=== PATIENT | male | born 1940 | race Caucasian/White ===

== ENCOUNTER 2016-11-20 11:06 | Emergency (ER) | payer MEDICARE, BC ==
[~2016-11-20] VITALS: Ht 170.2 cm; Wt 118.2 kg
[~2016-11-20 11:06] MED LIST: ALLEGRA 180MG180 MG PO; ASPIRIN E.C. 8181 MG PO; CALCIUM600 M2 PO; CALTRATE 600 +1 TAB PO; CARDI-OMEGA1000 MG PO; CENTRUM SILVER1 TA1 PO; CINNAMON500 MG PO; COZAAR100 MG PO; FLAX SEED OIL1000 MG PO; FLAXSEED OIL1300 MG PO; FOLIC ACID 40400 MCG PO; FORTAMET1000 MG PO; FOSINOPRIL40 MG PO; GARLIC1000 MG PO; GLUCOTROL10 MG PO; HCTZ 25MG25 MG PO; INDOCIN50 MG PO; INSLANT SQ; IRON50 MG PO; IRON65 M1 PO; KLOR-CON M2020 MEQ PO; LASIX 20MG TABL20 MG PO; LASIX 40MG TABL40 MG PO; LIPITOR20 MG PO; LOPID 600M600 MG/TAB PO; MELOXICAM15 MG PO; MICRONASE5 MG PO; NAPROSYN 2250 MG/TAB PO; NEURONTIN600 MG/TAB; NORCO 325 MG-51 TAB PO; NORCO 325 MG-7.1 TAB PO; NORVASC2.5 MG PO; REFRESH EYE ITCH5 ML OP; SUPER EPA 1201200 MG PO; TOPROL XL 50MG50 MG PO; ULTRAM 50MG TAB50 MG PO; VITAMIN C PO; VITAMIN C PUR1000 MG PO; VITAMIN C500 MG PO; ZOCOR 40MG40 MG PO
[2016-11-20 11:07] VITALS: TEMP 99
[2016-11-20] MEDS ORDERED: LASIX 40MG TABL40 MG PO (11:18)
[2016-11-20] MEDS ORDERED: NEURONTIN300 MG/CAP PO (11:20)
[2016-11-20 11:52] LABS: BASO # 0.1 (0.0-0.2); BASO % 0.5 % (0.0-2.0); EOS # 0.1 (0.0-0.7); EOS % 1.3 % (0-4.0); GRAN # 7.3 (1.4-6.5); GRAN % 74.2 % (42.2-75.2); LYMPH # 1.6 (1.2-3.4); LYMPH % 15.8 % (20.0-51.0); MEAN CELL VOLUME 94 fl (80.0-100.0); MEAN CORPUSCULAR HGB CONC 32 g/dl (33.0-37.0); MONO # 0.8 (0.1-0.6); MONO % 7.8 % (1.7-9.3); PLATELET COUNT 231 K/mm3 (130-400); RED BLOOD COUNT 3.64 M/mm3 (4.20-5.60); REDCELL DISTRIBUTION WIDTH-CV 14.2 % (11.5-14.5); WHITE BLOOD COUNT 9.8 K/mm3 (4.8-10.8)
[2016-11-20 11:55] LABS: HEMATOCRIT 34.1 % (42.0-52.0); HEMOGLOBIN 10.9 g/dl (13.5-18.0); MEAN CORPUSCULAR HEMOGLOBIN 30 pg (27.0-31.0)
[2016-11-20 11:57] LABS: INR 1.1 (0.8-3.0); PROTHROMBIN TIME 12.3 SECONDS (9.7-12.8)
[2016-11-20 12:03] LABS: ADJUSTED CALCIUM 9.4 mg/dL (8.4-10.2); ALBUMIN 4.1 gm/dL (3.5-5.0); BILIRUBIN,TOTAL 0.7 mg/dL (0.0-1.0); CALCIUM 9.5 mg/dL (8.4-10.2); CREATININE, serum 1.33 mg/dL (0.66-1.25); TOTAL PROTEIN 7.7 gm/dL (6.4-8.2)
[2016-11-20 12:15] LABS: TROPONIN-I 0.015 ng/mL (0.000-0.034)
[2016-11-20 12:20] LABS: PROLACTIN 4.5 ng/mL (3.7-17.9)
[2016-11-20 13:22] LABS: ARTERIAL BLD GAS O2 SATURATION 96.1 % (92-100); ARTERIAL BLD GAS TCO2 CT 25.5; ARTERIAL BLOOD GAS BASE EXCESS -0.2 (-2-2); ARTERIAL BLOOD GAS HCO3 24.3 meq/L (22-26); ARTERIAL BLOOD GAS PHT 7.41 C (7.35-7.45); ARTERIAL BLOOD GAS PO2 87.1 mmHg (80-100); ARTERIAL BLOOD GAS PO2T 87.1 (80-100); ARTERIAL BLOOD GAS pH 7.41 (7.35-7.45); OXYHEMOGLOBIN 95.3 %
[2016-11-20 13:23] LABS: ATS? YES
[2016-11-20 14:13] LABS: PH 5 (5-8); SQUAMOUS EPITHELIAL 0-2 /hpf; URINE APPEARANCE Clear; URINE BACTERIA None Seen /hpf; URINE BILIRUBIN Negative (NEGATIVE); URINE BLOOD Negative (NEGATIVE); URINE COLOR Yellow; URINE GLUCOSE Negative (NEGATIVE); URINE KETONE Negative (NEGATIVE); URINE RBC 0-2 /hpf; URINE UROBILINOGEN Negative (NEGATIVE); URINE WBC 0-2 /hpf
[2016-11-20 17:37] VITALS: BP 153/67; PULSE 93
== END 2016-11-20 19:08 | disposition home or self-care (01) ==
LOC: COL.ER 11:06
PROVIDERS: Emergency Medicine
DX: R53.1 Weakness (principal); I49.3 Ventricular premature depolarization; I11.0 Hypertensive heart disease with heart failure; I50.9 Heart failure, unspecified; E11.9 Type 2 diabetes mellitus without complications; J44.9 Chronic obstructive pulmonary disease, unspecified; F17.210 Nicotine dependence, cigarettes, uncomplicated; Z79.4 Long term (current) use of insulin
CPT/HCPCS: J7040

== ENCOUNTER → 2018-03-31 | Outpatient (CLI) | payer MEDICARE, BC ==
[~2018-03-31] MED LIST changes: +DEMADEX 20MG20 M1 PO; +DESENEX TP; +EPA FISH OIL1 SGL PO; +FLOMAX 0.40.4 MG/CAP PO; +HCTZ 25MG TAB25 MG PO; +LANTUS100 U/ML SQ; +NEURONTIN300 MG/CAP PO
[2018-03-31 09:38] LABS: BASO # 0.1 (0.0-0.2); BASO % 0.7 % (0.0-2.0); EOS # 0.3 (0.0-0.7); EOS % 4.5 % (0-4.0); GRAN # 5.1 (1.4-6.5); GRAN % 67.5 % (42.2-75.2); HEMATOCRIT 32.9 % (42.0-52.0); HEMOGLOBIN 10.9 g/dl (13.5-18.0); LYMPH # 1.5 (1.2-3.4); LYMPH % 19.4 % (20.0-51.0); MEAN CELL VOLUME 95 fl (80.0-100.0); MEAN CORPUSCULAR HEMOGLOBIN 31 pg (27.0-31.0); MEAN CORPUSCULAR HGB CONC 33 g/dl (33.0-37.0); MEAN PLATELET VOLUME 8.6 fl (7.4-10.4); MONO # 0.6 (0.1-0.6); MONO % 7.5 % (1.7-9.3); PLATELET COUNT 232 K/mm3 (130-400); RED BLOOD COUNT 3.47 M/mm3 (4.20-5.60); REDCELL DISTRIBUTION WIDTH-CV 14.5 % (11.5-14.5)
[2018-03-31 09:51] LABS: CALCIUM 9.8 mg/dL (8.4-10.2); CREATININE, serum 1.54 mg/dL (0.66-1.25); POTASSIUM 4.2 mmol/L (3.4-5.0)
== END ==
LOC: COL.LAB 09:05
PROVIDERS: Urology
DX: Z01.818 Encounter for other preprocedural examination (principal); N40.1 Benign prostatic hyperplasia with lower urinary tract symptoms; R39.12 Poor urinary stream

== ENCOUNTER 2018-04-06 11:30 | Day surgery (SDC) | payer MEDICARE, BC ==
[~2018-04-06] VITALS: Ht 170.2 cm; Wt 116.3 kg
[2018-04-06] VITALS (9 sets, daily range): BP systolic 90–164; BP diastolic 37–78; PULSE 56–89; TEMP 97.4–99.2
[~2018-04-06 11:30] MED LIST changes: +CALCIUM CARBON650 M2 PO; -CALCIUM600 M2 PO; +CENTRUM SILVER1 CTB PO; -CENTRUM SILVER1 TA1 PO; +FLAX OIL1000 MG PO; -FLAXSEED OIL1300 MG PO; -FORTAMET1000 MG PO; +GLUCOPHAGE1000 MG PO; -IRON65 M1 PO; +NATURAL IRON65 MG PO
[2018-04-06] MEDS ORDERED: MASON NATURAL1200 MG PO (12:40)
[2018-04-06] MEDS ORDERED: DESENEX21 TOP (14:57)
[2018-04-07 04:07] VITALS: BP 129/53; PULSE 67; TEMP 97.8
[2018-04-07 09:15] VITALS: BP 156/60; PULSE 76; TEMP 98.3
[2018-04-07 12:55] VITALS: BP 143/49; PULSE 77; TEMP 97.1
== END 2018-04-07 13:54 | disposition home or self-care (01) ==
LOC: SDCO 11:30 → SURG 16:49 → SDCO 04-07 13:54
DX: N40.1 Benign prostatic hyperplasia with lower urinary tract symptoms (principal); N32.0 Bladder-neck obstruction; R39.12 Poor urinary stream; N39.43 Post-void dribbling; R39.15 Urgency of urination; R35.0 Frequency of micturition; I11.0 Hypertensive heart disease with heart failure; I50.9 Heart failure, unspecified; E78.5 Hyperlipidemia, unspecified; E11.9 Type 2 diabetes mellitus without complications; Z79.4 Long term (current) use of insulin; Z79.82 Long term (current) use of aspirin; Z79.899 Other long term (current) drug therapy; F17.220 Nicotine dependence, chewing tobacco, uncomplicated; Z83.3 Family history of diabetes mellitus; Z82.49 Family history of ischemic heart disease and other diseases of the circulatory system
CPT/HCPCS: OP; J0690; J1815; J2250; J2405; J3010; J3480; J7030

== ENCOUNTER 2018-05-14 20:57 | Emergency (ER) | payer MEDICARE, BC ==
[~2018-05-14] VITALS: Ht 170.2 cm; Wt 113.6 kg
[~2018-05-14 20:57] MED LIST changes: +DESENEX21 TOP; +MASON NATURAL1200 MG PO
[2018-05-14 20:59] VITALS: BP 180/94; TEMP 97.6
[2018-05-14] MEDS ORDERED: MOBIC15 MG PO (21:37)
[2018-05-14 21:40] LABS: BASO % 0.4 % (0.0-2.0); EOS # 0.5 (0.0-0.7); GRAN # 6.2 (1.4-6.5); GRAN % 66.1 % (42.2-75.2); HEMOGLOBIN 11.8 g/dl (13.5-18.0); LYMPH # 2.1 (1.2-3.4); MEAN CELL VOLUME 94 fl (80.0-100.0); MEAN CORPUSCULAR HEMOGLOBIN 31 pg (27.0-31.0); MEAN CORPUSCULAR HGB CONC 33 g/dl (33.0-37.0); MEAN PLATELET VOLUME 8.7 fl (7.4-10.4); MONO # 0.6 (0.1-0.6); MONO % 6.2 % (1.7-9.3); PLATELET COUNT 247 K/mm3 (130-400); RED BLOOD COUNT 3.76 M/mm3 (4.20-5.60); REDCELL DISTRIBUTION WIDTH-CV 13.9 % (11.5-14.5)
[2018-05-14] MEDS ORDERED: EPA FISH OIL1 SGL PO (21:41)
[2018-05-14 21:44] LABS: HEMATOCRIT 35.5 % (42.0-52.0)
[2018-05-14 21:48] LABS: COLLECTION METHOD CLEAN CATCH
[2018-05-14 21:51] LABS: ALBUMIN 4.2 gm/dL (3.5-5.0); BILIRUBIN,TOTAL 0.2 mg/dL (0.0-1.0); CALCIUM 9.2 mg/dL (8.4-10.2); CREATININE, serum 2.08 mg/dL (0.66-1.25); POTASSIUM 4.4 mmol/L (3.4-5.0); TOTAL PROTEIN 7.8 gm/dL (6.4-8.2)
[2018-05-14 21:57] LABS: MUCOUS Present /lpf; PH 7 (5-8); SQUAMOUS EPITHELIAL 0-2 /hpf; URINE APPEARANCE Clear; URINE BACTERIA None Seen /hpf; URINE BILIRUBIN Negative (NEGATIVE); URINE BLOOD Negative (NEGATIVE); URINE COLOR Straw; URINE GLUCOSE Negative (NEGATIVE); URINE KETONE Negative (NEGATIVE); URINE LEUKOCYTE ESTERASE 2+ (NEGATIVE); URINE NITRATE Negative (NEGATIVE); URINE PROTEIN(semi-quant) Negative (NEGATIVE); URINE UROBILINOGEN Negative (NEGATIVE)
[2018-05-14] MEDS ORDERED: CIPRO 500MG TA500 MG PO (22:43)
[2018-05-15 00:35] VITALS: PULSE 79
== END 2018-05-15 00:35 | disposition home or self-care (01) ==
LOC: COL.ER 20:57
PROVIDERS: Emergency Medicine
DX: R20.2 Paresthesia of skin (principal); E86.0 Dehydration; N39.0 Urinary tract infection, site not specified; E11.40 Type 2 diabetes mellitus with diabetic neuropathy, unspecified; I11.0 Hypertensive heart disease with heart failure; I50.9 Heart failure, unspecified; Z79.82 Long term (current) use of aspirin; Z79.84 Long term (current) use of oral hypoglycemic drugs; Z98.890 Other specified postprocedural states
CPT/HCPCS: J0696; J7040

== ENCOUNTER 2018-06-07 19:22 | Emergency (ER) | payer MEDICARE, BC ==
[~2018-06-07] VITALS: Ht 170.2 cm; Wt 113.6 kg
[~2018-06-07 19:22] MED LIST changes: +CIPRO 500MG TA500 MG PO; +MOBIC15 MG PO
[2018-06-07 19:24] VITALS: BP 164/72; PULSE 69; TEMP 98.3
== END 2018-06-07 22:14 | disposition home or self-care (01) ==
LOC: COL.ER 19:22
DX: M25.561 Pain in right knee (principal); M23.51 Chronic instability of knee, right knee; I10 Essential (primary) hypertension; I50.9 Heart failure, unspecified; E66.01 Morbid (severe) obesity due to excess calories; E78.5 Hyperlipidemia, unspecified; E11.40 Type 2 diabetes mellitus with diabetic neuropathy, unspecified; Z79.82 Long term (current) use of aspirin; Z79.4 Long term (current) use of insulin

== ENCOUNTER → 2019-04-03 | Outpatient (CLI) | payer OTHER | LOC: COL.RAD 03-27 13:30 | DX: N18.3 Chronic kidney disease, stage 3 (moderate) (principal); N28.1 Cyst of kidney, acquired ==

== ENCOUNTER 2019-04-09 21:10 | Inpatient (IN) | payer MEDICARE, BC ==
[~2019-04-09] VITALS: Ht 170.2 cm; Wt 82.1 kg
[2019-04-09 21:49] LABS: BASO # 0.1 (0.0-0.2); BASO % 0.3 % (0.0-2.0); EOS # 0.1 (0.0-0.7); EOS % 0.5 % (0-4.0); GRAN # 16.2 (1.4-6.5); GRAN % 87.9 % (42.2-75.2); HEMOGLOBIN 11.5 g/dl (13.5-18.0); LYMPH % 5.4 % (20.0-51.0); MEAN CELL VOLUME 92 fl (80.0-100.0); MEAN CORPUSCULAR HEMOGLOBIN 30 pg (27.0-31.0); MEAN CORPUSCULAR HGB CONC 33 g/dl (33.0-37.0); MEAN PLATELET VOLUME 9.8 fl (7.4-10.4); MONO # 0.9 (0.1-0.6); MONO % 5.1 % (1.7-9.3); PLATELET COUNT 276 K/mm3 (130-400); RED BLOOD COUNT 3.84 M/mm3 (4.20-5.60)
[2019-04-09 21:56] LABS: ALBUMIN 4.3 gm/dL (3.5-5.0); BILIRUBIN,TOTAL 0.3 mg/dL (0.0-1.0); CALCIUM 9.1 mg/dL (8.4-10.2); CREATININE, serum 1.51 (0.66-1.25); HEMATOCRIT 35.4 % (42.0-52.0); POTASSIUM 4.6 mmol/L (3.4-5.0); TOTAL PROTEIN 8.1 gm/dL (6.4-8.2)
[2019-04-09] MEDS ORDERED: LYRICA 150MG C150 MG PO (21:56)
[2019-04-09] MEDS ORDERED: SINEMET 25/101 UDTAB PO (21:57)
[2019-04-09 21:58] LABS: PROTHROMBIN TIME 11.4 SECONDS (9.7-12.8)
[2019-04-09] MEDS ORDERED: HYGROTON 2525 MG/TAB (21:58)
[2019-04-09] MEDS ORDERED: CRESTOR 10MG10 MG PO (21:58)
[2019-04-09 22:08] LABS: TROPONIN-I 0.018 ng/mL (0.000-0.035)
--- NOTE | 2019-04-10 01:00 | NUR ---
Arrived to medical floor from ED. Assessment complete. Lungs clear at this time. Sputum can be heard in throat/nasal cavity. Heart sounds normal. Bowels active x4. Pulses present throughout. Bilateral lower leg edema +3. Coccyx area reddish/purple with scab/flaky skin present. Patient reports "healing pressure sore." Dry flaking skin present on bilateral feet. IV to left upper arm without complications. and daughter at bedside. Medication rec. complete. All questions answered. Denies needs at this time. Call light in reach.
[2019-04-10 01:32] VITALS: BP 126/53; PULSE 87; TEMP 98.5
[2019-04-10 03:00] LABS: COLLECTION METHOD CLEAN CATCH
--- NOTE | 2019-04-10 03:00 | NUR ---
Patient straight catheterized at this time. 300ml yellow urine out. Tolerated well. Denies needs. Repositioned at this time. Call ligth in reach.
[2019-04-10 03:08] LABS: PH 5 (5-8); SQUAMOUS EPITHELIAL 0-2 /hpf; URINE APPEARANCE Clear; URINE BACTERIA Rare /hpf; URINE BILIRUBIN Negative (NEGATIVE); URINE BLOOD Negative (NEGATIVE); URINE COLOR Yellow; URINE GLUCOSE Negative (NEGATIVE); URINE KETONE Negative (NEGATIVE); URINE LEUKOCYTE ESTERASE Negative (NEGATIVE); URINE NITRATE Negative (NEGATIVE); URINE PROTEIN(semi-quant) 1+ (NEGATIVE); URINE UROBILINOGEN Negative (NEGATIVE)
[2019-04-10 05:18] VITALS: BP 125/46; PULSE 90; TEMP 98.1
--- NOTE | 2019-04-10 07:43 | NUR ---
Patient had uneventful night. Repositioned Q2H with heels floated as ordered. Resting in bed this AM. Report given to CELINA Gomez.
[2019-04-10 07:56] VITALS: BP 117/65; PULSE 85; TEMP 99
[2019-04-10 08:06] LABS: BASO # 0.1 (0.0-0.2); BASO % 0.4 % (0.0-2.0); EOS % 0.2 % (0-4.0); GRAN # 13.3 (1.4-6.5); GRAN % 82.3 % (42.2-75.2); HEMOGLOBIN 10.1 g/dl (13.5-18.0); LYMPH # 1.7 (1.2-3.4); LYMPH % 10.7 % (20.0-51.0); MEAN CELL VOLUME 93 fl (80.0-100.0); MEAN CORPUSCULAR HEMOGLOBIN 30 pg (27.0-31.0); MEAN CORPUSCULAR HGB CONC 33 g/dl (33.0-37.0); MEAN PLATELET VOLUME 10.1 fl (7.4-10.4); PLATELET COUNT 253 K/mm3 (130-400); RED BLOOD COUNT 3.32 M/mm3 (4.20-5.60); REDCELL DISTRIBUTION WIDTH-CV 13.2 % (11.5-14.5)
--- NOTE | 2019-04-10 08:15 | NUR ---
Pt sitting in bed, alert and oriented X4. Denies any pain or shortness of breath at this time. Completed morning assessment. Pt able to lift and hold all extremities. Bilateral lower extremity +3 pitting edema. Stage 1 pressure ulcer noted on sacrum, dry and flaking with redness. Will continue to reposition pt. Denies any needs at this time. Will contiue to monitor. Call light in reach.
[2019-04-10 08:18] LABS: CALCIUM 8.6 mg/dL (8.4-10.2); CREATININE, serum 1.5 (0.66-1.25)
--- NOTE | 2019-04-10 10:34 | NUR ---
SOLEDAD met with the patient to discuss discharge plan. The patient lives in [place] with his , Jaimee. He reports needing assistance with bathing and has a cane and walker. He states that he receives assistance for bathing from [facility]. SOLEDAD contacted Rashel at [facility] and confirmed that the patient receives homecare services for bathing three times a week. The patient receives [facility] from [facility] in [place] and also Dr. Salas. He receives his medications through the mail from the [facility]. He reports no difficulties obtaining his meds. The patient does not have advanced directives and he was not interested in completing them at this time. The patient plans to return home with his upon discharge. No identified needs at this time, but SW to continue to follow.
[2019-04-10 12:20] VITALS: BP 143/65; PULSE 66; TEMP 98.4
[2019-04-10 16:23] VITALS: BP 134/46; PULSE 86; TEMP 98.2
--- NOTE | 2019-04-10 18:00 | NUR ---
Pt lying in bed, IV infilitrated, removed catheter tip intact, not redness noted. Mild swelling noted, applied warm compress. Inserted 22g to LF. Completed a gown change and incontinent brief change. Denies any other needs at this time.
[2019-04-10 20:10] VITALS: BP 131/70; PULSE 70; TEMP 100.3
--- NOTE | 2019-04-10 22:15 | NUR ---
Pt resting in bed. Assist to edge of bed to take meds. Takes milk with meds. Lg incont of urine. Scrotum red, and coccyx with sm open area. Applied barrier cream. Tele monitor adjusted.
[2019-04-11 00:42] VITALS: BP 143/67; PULSE 69; TEMP 98.4
--- NOTE | 2019-04-11 02:30 | NUR ---
Pt incont of large amt urine. Changed and barrier cream reapplied. Repositioned to right side.
--- NOTE | 2019-04-11 04:13 | NUR ---
Pt's upper left arm has a redened area from a coban that was around his previous IV site.
[2019-04-11 05:26] VITALS: BP 154/59; PULSE 77; TEMP 97.4
--- NOTE | 2019-04-11 06:56 | NUR ---
Report given to CELINA Bates
--- NOTE | 2019-04-11 07:30 | NUR ---
Pt alert to person and place and year. Pt denies pain or SOB at this time. Pt am assessment completed. Pt IV patent no infiltration or redness noted. Pt has call light in reach and fall precautions in place. Pt incontinent of urine this am. Cares provided and heels floated.
[2019-04-11 07:45] LABS: BASO # 0.1 (0.0-0.2); BASO % 0.5 % (0.0-2.0); EOS # 0.2 (0.0-0.7); EOS % 2.1 % (0-4.0); GRAN # 7.9 (1.4-6.5); GRAN % 76.2 % (42.2-75.2); LYMPH # 1.5 (1.2-3.4); LYMPH % 14.5 % (20.0-51.0); MEAN CELL VOLUME 93 fl (80.0-100.0); MEAN CORPUSCULAR HGB CONC 32 g/dl (33.0-37.0); MEAN PLATELET VOLUME 10.1 fl (7.4-10.4); MONO # 0.7 (0.1-0.6); MONO % 6.4 % (1.7-9.3); PLATELET COUNT 232 K/mm3 (130-400); RED BLOOD COUNT 3.31 M/mm3 (4.20-5.60); REDCELL DISTRIBUTION WIDTH-CV 13.1 % (11.5-14.5)
[2019-04-11 07:50] LABS: HEMATOCRIT 30.9 % (42.0-52.0); HEMOGLOBIN 9.8 g/dl (13.5-18.0); MEAN CORPUSCULAR HEMOGLOBIN 30 pg (27.0-31.0)
[2019-04-11 08:03] LABS: CALCIUM 9.4 mg/dL (8.4-10.2); CHOLESTEROL RISK RATIO 4.9; CREATININE, serum 1.35 (0.66-1.25); POTASSIUM 3.8 mmol/L (3.4-5.0)
[2019-04-11 09:01] VITALS: BP 156/74; PULSE 75; TEMP 97.4
[2019-04-11 11:38] VITALS: BP 127/58; PULSE 65; TEMP 98.6
--- NOTE | 2019-04-11 11:59 | NUR ---
First visit from the roll plugger. No needs right now.
--- NOTE | 2019-04-11 15:45 | NUR ---
SOLEDAD met with the patient and patient's , Jaimee, to review discharge plan and to discuss occupational therapies recommendation of post-acute rehab and how PT recommended home health and then post-acute rehab. The patient's reports that she would be agreeable to rehab for the patient. She states she would not be able to help get the patient around at home. The patient states he would like to go home, but would be agreeable to rehab. SOLEDAD presented the patient and his with Medicare[facility]'s list of SNFs in the [facility] and the patient choice form. The patient and his chose 1) [facility] 2) [facility]. Patient choice form signed by the patient's and she was provided a copy. SOLEDAD then contacted and faxed a referral to both facilities. [facility] reports that they do not have any beds available at this time. SOLEDAD informed the patient and his . SW awaiting Josemn's screen.
--- NOTE | 2019-04-11 16:09 | NUR ---
The patient's informed SW that they would actually prefer [facility] in [place] for third preference and then [facility] [place]. SW contacted and faxed a referral to both facilities. SW awaiting their screenings.
[2019-04-11 16:51] VITALS: BP 173/69; PULSE 66; TEMP 97.9
--- NOTE | 2019-04-11 19:03 | NUR ---
Pt stable and alert. Pt has spouse at bedside. Pt up with PT today and had hard time getting out his chair. Spouse was not comfortable with pt going home so looking into SNF for discharge tomorrow. Pt has call light in reach and IV patent. Pt has fall precautions in place.
[2019-04-11 20:07] VITALS: BP 146/55; PULSE 71; TEMP 98.7
--- NOTE | 2019-04-11 20:27 | NUR ---
Resting in bed. Assessment complete. Right upper lobe diminished with upper airway wheezing. Respiratory contacted for breathing treatment. Otherwise lungs clear. Heart sounds normal. Bowels active x4. Pulses present throughout. Bilateral lower leg edema +1. Coccyx area stage 1, healing, cream applied. Groin erythema present, cleaned and cream applied. Bilateral foot scaling and dry skin, lotion applied. Socks replaced. Denies pain at this time. INT to left forearm without complications. Blood sugar 351. Provided with 8 units of novolog. Denies other needs. Call light in reach.
[2019-04-12 00:07] VITALS: BP 152/57; PULSE 66; TEMP 98.5
--- NOTE | 2019-04-12 01:15 | NUR ---
Resting in bed. Denies needs. Call light in reach.
[2019-04-12 04:41] VITALS: BP 156/51; PULSE 64; TEMP 98.1
[2019-04-12 06:16] LABS: BASO % 0.3 % (0.0-2.0); EOS # 0.2 (0.0-0.7); EOS % 2.5 % (0-4.0); GRAN # 6.4 (1.4-6.5); GRAN % 72.4 % (42.2-75.2); LYMPH # 1.4 (1.2-3.4); LYMPH % 16.3 % (20.0-51.0); MEAN CELL VOLUME 92 fl (80.0-100.0); MEAN CORPUSCULAR HEMOGLOBIN 30 pg (27.0-31.0); MEAN CORPUSCULAR HGB CONC 33 g/dl (33.0-37.0); MEAN PLATELET VOLUME 9.9 fl (7.4-10.4); MONO # 0.7 (0.1-0.6); MONO % 8.2 % (1.7-9.3); PLATELET COUNT 247 K/mm3 (130-400); RED BLOOD COUNT 3.33 M/mm3 (4.20-5.60); REDCELL DISTRIBUTION WIDTH-CV 12.9 % (11.5-14.5)
[2019-04-12 06:34] LABS: CALCIUM 9.4 mg/dL (8.4-10.2); CREATININE, serum 1.44 (0.66-1.25); POTASSIUM 3.6 mmol/L (3.4-5.0)
[2019-04-12 06:53] LABS: HEMATOCRIT 30.7 % (42.0-52.0)
--- NOTE | 2019-04-12 07:53 | NUR ---
Uneventful night. Report given to CELINA Bates
--- NOTE | 2019-04-12 08:29 | NUR ---
Pt resting in bed. Pt alert and oriented. Pt denies pain. Pt BS 83 this am. Pt ordered breakfast. Pt incontinent of urine and bed linens changed and tommy cares provided. Pt IV patent and no redness or infiltration noted. Pt has call light in reach.
[2019-04-12 08:32] VITALS: BP 155/59; PULSE 63
[2019-04-12] MEDS ORDERED: OMNICEF 300MG300 MG PO (09:35)
[2019-04-12] MEDS ORDERED: ASPIRIN E.C. 8181 MG PO (09:35)
[2019-04-12] MEDS ORDERED: PLAVIX 75MG TAB75 MG PO (09:35)
[2019-04-12] MEDS ORDERED: IPRATROPIUM BROM3 M1 IH (09:47)
--- NOTE | 2019-04-12 11:42 | NUR ---
Dori, at [facility], reports that they are unable to accept the patient; due to having no beds. Rivka, at [facility], reports that they can accept the patient for a skilled stay. SOLEDAD informed the patient and patient's . The patient's and his report that they would like to pursue with [facility]. SOLEDAD contacted and updated Ross at [facility]. The patient is to discharge today, 04/12, to [facility] for a skilled stay. Transportation was set for around 1230, via [facility]. SW informed the patient, patient's , and nurse. They were all in agreeance. SW also presented and explained the IM form to the patient and patient's . The patient's verbalized understanding, signed, and she was provided a copy. No additional needs at this time.
--- NOTE | 2019-04-12 11:45 | NUR ---
Follow up visit. No needs right now.
[2019-04-12 12:03] VITALS: BP 155/59; PULSE 63; TEMP 98.1
--- NOTE | 2019-04-12 13:00 | NUR ---
Pt alert and oriented. Pt spouse at bedside. Pt IV discontinued tip intact no redness or infiltration. Pt dressed by OT. Pt ready to transfer. [facility] staff here and transfer paperwork given to staff. Pt assisted to wheelchair x2 with gait belt. Pt escorted out by [place] staff transporter.
== END 2019-04-12 13:00 | DRG 871 ==
LOC: COL.ER 21:10 → MEDICAL 23:27
PROVIDERS: Emergency Medicine; Nurse Practitioner; Physician Assistant; ADMIT Student in an Organized Health Care Education/Training Program
DX: A41.9 Sepsis, unspecified organism (principal); J18.9 Pneumonia, unspecified organism; G45.9 Transient cerebral ischemic attack, unspecified; Z68.41 Body mass index [BMI] 40.0-44.9, adult; I50.32 Chronic diastolic (congestive) heart failure; E66.01 Morbid (severe) obesity due to excess calories; M19.90 Unspecified osteoarthritis, unspecified site; N40.0 Benign prostatic hyperplasia without lower urinary tract symptoms; Z79.4 Long term (current) use of insulin; Z96.652 Presence of left artificial knee joint; Z96.662 Presence of left artificial ankle joint; Z96.612 Presence of left artificial shoulder joint; Z96.611 Presence of right artificial shoulder joint; Z79.84 Long term (current) use of oral hypoglycemic drugs; Z87.891 Personal history of nicotine dependence; Z88.1 Allergy status to other antibiotic agents; Z88.8 Allergy status to other drugs, medicaments and biological substances; E11.42 Type 2 diabetes mellitus with diabetic polyneuropathy; G20 Parkinson's disease; I11.0 Hypertensive heart disease with heart failure; D64.9 Anemia, unspecified
CPT/HCPCS: 99222-AI; 99232-AI; 99239; A4216; A9585; J0456; J0696; J1644; J1815; J7030; J7050

== ENCOUNTER 2020-04-09 17:05 | Inpatient (IN) | payer MEDICARE, BC ==
[~2020-04-09] VITALS: Ht 170.3 cm; Wt 82.2 kg
[~2020-04-09 17:05] MED LIST changes: +CRESTOR 10MG10 MG PO; -FLAX OIL1000 MG PO; +FLAXSEED OIL1000 MG PO; +HYGROTON 2525 MG/TAB; +IPRATROPIUM BROM3 M1 IH; +LYRICA 150MG C150 MG PO; +NATURAL ODORLE400 MG PO; +OMNICEF 300MG300 MG PO; +PLAVIX 75MG TAB75 MG PO; +SINEMET 25/101 UDTAB PO
[2020-04-09 17:22] LABS: BASO % 0.1 % (0.0-2.0); EOS # 0.4 (0.0-0.7); EOS % 4.2 % (0-4.0); GRAN # 7.6 (1.4-6.5); GRAN % 78.1 % (42.2-75.2); LYMPH # 0.7 (1.2-3.4); LYMPH % 7.6 % (20.0-51.0); MEAN CELL VOLUME 91 fl (80.0-100.0); MEAN CORPUSCULAR HGB CONC 31 g/dl (33.0-37.0); MEAN PLATELET VOLUME 9.9 fl (7.4-10.4); MONO # 0.9 (0.1-0.6); MONO % 9.5 % (1.7-9.3); PLATELET COUNT 213 K/mm3 (130-400); RED BLOOD COUNT 3.28 M/mm3 (4.20-5.60); REDCELL DISTRIBUTION WIDTH-CV 14.1 % (11.5-14.5)
[2020-04-09 17:23] LABS: HEMATOCRIT 29.9 % (42.0-52.0); HEMOGLOBIN 9.3 g/dl (13.5-18.0); MEAN CORPUSCULAR HEMOGLOBIN 28 pg (27.0-31.0)
[2020-04-09 17:35] LABS: ALBUMIN 4.2 gm/dL (3.5-5.0); BILIRUBIN,TOTAL 0.3 mg/dL (0.0-1.0); CALCIUM 8.3 mg/dL (8.4-10.2); CREATININE, serum 2.6 (0.66-1.25); POTASSIUM 5.4 mmol/L (3.4-5.0); TOTAL PROTEIN 7.7 gm/dL (6.4-8.2)
[2020-04-09 17:46] LABS: C-REACTIVE PROTEIN 1.6 mg/dL (0.0-0.9)
[2020-04-09 18:03] LABS: TROPONIN-I 0.019 ng/mL (0.000-0.035)
[2020-04-09] MEDS ORDERED: SMZ/TMPDS PO (18:20)
[2020-04-09 18:24] LABS: MAGNESIUM 2.5 mg/dL (1.6-2.3); PHOSPHOROUS 5.3 mg/dL (2.5-4.5)
[2020-04-09] MEDS ORDERED: NESINA12.5 PO (18:54)
[2020-04-09] MEDS ORDERED: GLUCOTROL10 MG PO (18:55)
[2020-04-09] MEDS ORDERED: LANTUS100 U/ML SQ (18:56)
[2020-04-09] MEDS ORDERED: COZAAR 50MG50 MG/TAB PO (18:59)
[2020-04-09] MEDS ORDERED: LOPRESSOR 550 MG/TAB PO (18:59)
[2020-04-09] MEDS ORDERED: LYRICA 150MG C150 MG PO (19:00)
[2020-04-09] MEDS ORDERED: FLAXSEED OIL1000 MG PO (19:04)
[2020-04-09 19:10] LABS: COLLECTION METHOD CLEAN CATCH
[2020-04-09 19:18] LABS: MUCOUS Present /lpf; PH 5 (5-8); SQUAMOUS EPITHELIAL None Seen /hpf; URINE APPEARANCE Clear; URINE BACTERIA None Seen /hpf; URINE BILIRUBIN Negative (NEGATIVE); URINE BLOOD Negative (NEGATIVE); URINE COLOR Straw; URINE GLUCOSE Negative (NEGATIVE); URINE KETONE Negative (NEGATIVE); URINE LEUKOCYTE ESTERASE Negative (NEGATIVE); URINE NITRATE Negative (NEGATIVE); URINE PROTEIN(semi-quant) Negative (NEGATIVE); URINE RBC 0-2 /hpf; URINE UROBILINOGEN Negative (NEGATIVE)
[2020-04-09 20:33] LABS: PROTHROMBIN TIME 11.7 SECONDS (9.7-12.8)
[2020-04-09 20:48] VITALS: BP 154/52; PULSE 62; TEMP 98.7
[2020-04-09 21:05] LABS: TROPONIN-I 0.025 ng/mL (0.000-0.035)
[2020-04-09 21:24] LABS: THYROID STIMULATING HORMONE 2.57 uIU/mL (0.465-4.680)
[2020-04-09 21:39] LABS: CREATININE, serum 2.66 (0.66-1.25)
--- NOTE | 2020-04-09 23:10 | NUR ---
APPLIED EXTERNAL CATHETER. PATIENT TOLD PATIENT AFTER NURSE SAID YOULL FEEL ME TOUCHING, WELL IT WONT GROW ON YOU. EXPLAINED THE REASONING OF THE EXTERNAL CATH TO THE PATIENT.
[2020-04-09 23:20] VITALS: BP 110/48; PULSE 60; TEMP 99.7
[2020-04-10 02:55] LABS: BASO % 0.3 % (0.0-2.0); EOS # 0.4 (0.0-0.7); EOS % 4.8 % (0-4.0); GRAN # 5.4 (1.4-6.5); GRAN % 68.5 % (42.2-75.2); LYMPH % 13.2 % (20.0-51.0); MEAN CELL VOLUME 91 fl (80.0-100.0); MEAN CORPUSCULAR HGB CONC 31 g/dl (33.0-37.0); MONO % 12.8 % (1.7-9.3); PLATELET COUNT 205 K/mm3 (130-400); RED BLOOD COUNT 3.23 M/mm3 (4.20-5.60); REDCELL DISTRIBUTION WIDTH-CV 14.1 % (11.5-14.5)
[2020-04-10 03:00] LABS: CALCIUM 8.5 mg/dL (8.4-10.2); CHOLESTEROL RISK RATIO 4.5; CREATININE, serum 2.77 (0.66-1.25); POTASSIUM 4.7 mmol/L (3.4-5.0)
[2020-04-10 03:04] LABS: HEMATOCRIT 29.5 % (42.0-52.0); HEMOGLOBIN 9.1 g/dl (13.5-18.0); MEAN CORPUSCULAR HEMOGLOBIN 28 pg (27.0-31.0)
[2020-04-10 03:11] LABS: TROPONIN-I 0.031 ng/mL (0.000-0.035)
[2020-04-10 03:34] VITALS: BP 158/68; PULSE 63; TEMP 98
--- NOTE | 2020-04-10 04:45 | NUR ---
PATIENT CAME UP TO THE FLOOR FROM THE ED DEPARTMENT A LITTLE AFTER SHIFT CHANGE AROUND 1999. PATIENT CAME FROM HOME WHERE HE HAS FALLEN SEVERAL TIMES IN THE PAST COUPLE OF WEEKS. WHAT BROUGHT HIM IN LAST EVENING WAS HE FELL WHILE TRYING TO GO TO THE BATHROOM. PATIENT HAS SIGNIFICANT AMOUNT OF BILATERAL LOWER EXTREMETIY NOTED. PATIENT IS GETTING BUMEX INJECTIONS TO HELP PULL SOME FLUID OFF OF THE PATIENT. THE PATIENT DID HAVE AN EXTERNAL CATHETER PLACED TO HELP WITH HIM GOING TO THE BATHROOM REGULARLY BECAUSE OF THE BUMEX. PATIENT DOES HAVE A STAGE 2 ULCER TO HIS COCCYX THAT IS BEING MANAGED BY OPEN TO AIR. PATIENT IS ON A FLUID RESTRICTION OF 1500 ML PER DAY. LUNG SOUNDS WERE DIMINISHED PER THIS NURSE. 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 PATIET DOES HAVE SOME OPEN SORES TO HIS KNEES WHERE HE HIT THEM WHEN HE FELL GOING TO THE BATHROOM. [facility] BUT [facility] , ACCORDING TO THE H&P BY Philippe LEON, THE IS NOT BEING ABLE TO CARE FOR HIM ANYMORE. TEACHER PRIVATE IS BEING CONSULTED TO HELP. PATIENT TAKES HIS PILLS OK WITH WATER. PATIENT DOES HAVE SOME SHORTNESS OF BREATH WHEN HE LAYS FLAT OR HIS HEAD OF BED IS DECREASED. PATIENT DENIES ANY OTHER NEEDS AT THIS POINT AND TIME. WILL REPORT OFF TO DAY SHIFT. (PATIENT IS ALERT AND ORIENTATED)
--- NOTE | 2020-04-10 06:11 | NUR ---
PATIENT WAS MAKING SOME CONFUSING COMMENTS THIS MORNING ABOUT SOME FAMILY MEMBERS SO WHEN ASKING HIM ORIENTATION QUESTIONS, HE WAS ABLE TO TELL ME WHERE HE WAS, THE YEAR, AND WHO THE PRESIDENT WAS.
--- NOTE | 2020-04-10 06:29 | NUR ---
EXTERNAL CATHETER WAS REPLACED DUE TO THE OLD ONE FALLING OFF
--- NOTE | 2020-04-10 06:50 | NUR ---
BEDSIDE REPORT GIVEN, PT LAYING IN BED, NO NEEDS AT THIS TIME.
[2020-04-10 08:14] VITALS: BP 140/51; PULSE 63; TEMP 97.8
--- NOTE | 2020-04-10 09:00 | NUR ---
PT IN BED, 3+ EDEME PRESENT ON BLE. ASSESSMENT PERFORMED, MEDICAITONS GIVEN, PT ALERT AND ORIENTED, PT PLEASANT AND MAKING JOKES. ATE 100% OF BREAKFAST. LEVEMIR GIVEN. NO OTHER NEEDS AT THIS TIME.
[2020-04-10 09:58] LABS: TROPONIN-I 0.023 ng/mL (0.000-0.035)
[2020-04-10 12:21] VITALS: BP 149/39; PULSE 62; TEMP 97.9
--- NOTE | 2020-04-10 13:23 | NUR ---
WHEN DOING MED REC PT STATES "I DON'T KNOW WHAT I TAKE OR WHEN I TAKE IT, I GUESS I SHOULD START LEARNING WHAT I TAKE".
--- NOTE | 2020-04-10 15:49 | NUR ---
Mechanical Integrity Engineer contacted patient's , Jaimee (ph#[phone]) to discuss discharge planning as patient is in contact isolation. Patient lives in [place] with Jamiee and sees Dr. Callejas for primary care. Patient also has primary care services through the [facility]. Patient has medications mailed to the home from the [facility]. Patient does not have Advance Directives in EMR. Patient uses a front wheeled walker at home. Jaimee reports she has concerns that she can no longer care for patient at home. SOLEDAD advised that recommendation from PT/OT is post acute rehab. Jaimee agrees with this recommendation. Jaimee expressed interest in [facility] and [facility]. SOLEDAD advised both are not accepting referrals at this time. Jaimee would like referrals sent to [facility] in [place] and to [facility]. SOLEDAD faxed referrals. SOLEDAD left a message for Deyanira at [facility]. SOLEDAD spoke with Gabbie at [facility] who advised they are able to accept. SOLEDAD followed up with Jaimee to provide update. Jaimee states if [facility] can accept, she is agreeable with this discharge plan. Jaimee states her own health is getting worse and she struggles to care for patient at home. Jaimee believes patient may need residential care after skilled stay. SOLEDAD will continue to follow.
[2020-04-10 17:13] VITALS: BP 128/44; PULSE 67; TEMP 98.1
--- NOTE | 2020-04-10 17:34 | NUR ---
PT IN BED, GOT UP WITH PT, PT EXTERNAL CATH HAD TO BE REPLACED MULTIPLE TIMES. AT BEDSIDE, NO OTHER NEEDS AT THIS TIME.
--- NOTE | 2020-04-10 17:54 | NUR ---
ATTEMPTED TO REACH, EMELIA, PT , ABOUT CHANGE IN VISITOR POLICY BUT DID NOT ANSWER.
[2020-04-10 19:14] VITALS: BP 137/49; PULSE 67; TEMP 97.8
--- NOTE | 2020-04-10 20:45 | NUR ---
Assessment complete. Resting in bed. Television on. Conversation, confused. Reports he is at his home in [place]" and doesn't know who all is "running around his place". Heavy 2 assist up to commode, large formed BM. Assisted back to bed with 2 assist and sit to stand lift. Denies other needs at this time.
[2020-04-10 22:47] VITALS: BP 140/56; PULSE 109; TEMP 98.9
[2020-04-11] VITALS (7 sets, daily range): BP systolic 118–161; BP diastolic 57–74; PULSE 72–104; TEMP 98–99.5
--- NOTE | 2020-04-11 02:25 | NUR ---
Restless, talking to persons not thre in his room. Believes he is in his own own and that staff are unwelcome people at his home. Asked if he "was hurting'. His reply was "hell cathleen, my back!" Asked if he would like a pain pill. He replied "yes, bring me two."
--- NOTE | 2020-04-11 07:31 | NUR ---
PT IN BED, BLE EDEMA PRESENT, NEW IV BEING PLACED. NO OTHER NEEDS AT THIS TIME.
--- NOTE | 2020-04-11 08:30 | NUR ---
PT IN BED, THINKS HE IS AT HOME AND NOT IN HOSPITAL, PT SAYS "IF IM IN THE HOSPITAL THEN I DON'T KNOW WHO I AM". PT REORIENTED, BUT REFUSES HE IS IN THE HOSPITAL. PT DENIES PAIN AT THIS TIME. BED IN LOW POSITION, FALL GOWN IN PLACE ALONG WITH FALL SOCKS AND FALL SIGNS. BED ALARM SET. NO OTHER NEEDS AT THIS TIME.
[2020-04-11 08:33] LABS: BASO % 0.3 % (0.0-2.0); EOS # 0.2 (0.0-0.7); EOS % 1.7 % (0-4.0); GRAN % 73.7 % (42.2-75.2); HEMATOCRIT 31.5 % (42.0-52.0); HEMOGLOBIN 9.6 g/dl (13.5-18.0); LYMPH # 1.2 (1.2-3.4); LYMPH % 12.7 % (20.0-51.0); MEAN CELL VOLUME 92 fl (80.0-100.0); MEAN CORPUSCULAR HEMOGLOBIN 28 pg (27.0-31.0); MEAN CORPUSCULAR HGB CONC 31 g/dl (33.0-37.0); MEAN PLATELET VOLUME 10.5 fl (7.4-10.4); MONO # 1.1 (0.1-0.6); MONO % 11.1 % (1.7-9.3); PLATELET COUNT 227 K/mm3 (130-400); RED BLOOD COUNT 3.43 M/mm3 (4.20-5.60); REDCELL DISTRIBUTION WIDTH-CV 14.3 % (11.5-14.5)
--- NOTE | 2020-04-11 08:57 | NUR ---
PT TRYING TO GET OUT OF BED BY HIMSELF. PT RIPPED OFF TELEMETRY. PT THINKS HE IS AT HIS HOUSE. UNABLE TO REORIENT, PT IN DENIAL. PT SETTLED BACK INTO BED, NUC MED ON WAY TO GET HIM FOR LEXISCAN, PT AWARE OF TEST.
[2020-04-11 09:00] LABS: CREATININE, serum 2.36 (0.66-1.25); POTASSIUM 4.6 mmol/L (3.4-5.0)
--- NOTE | 2020-04-11 13:18 | NUR ---
BS TAKEN, PT BOOSTED UP IN BED, UPON ENTERING THE ROOM PT WAS HAVING A CONVERSATION WITH NO ONE IN THE ROOM, I ASKED HIM WHO HE WAS TALKING TO AND HE SAID HIS . HE WAS ALSO TRYING TO HAND ME SOMETHING AND THERE WAS NOTHING IN HIS HAND. PT ALSO THOUGHT HIS FATHER WAS WANDERING THE HALLS. HALLUCINATIONS HAVE BEEN GOING ON ALL DAY.
--- NOTE | 2020-04-11 15:18 | NUR ---
PT INCONTINENT OF URINE AND STOOL. PT HAD LARGE SOFT FORMED BM, MALODOROUS. PERICARE PROVIDED, BED CHANGE PROVIDED, BARRIER CREAM APPLIED. PT MAKING INNAPROPRIATE COMMENTS TOWARDS WOMEN. PT INNAPROPRIATELY TOUCHING FEMALE NURSES. PT DENIES PAIN AT THIS TIME. PT STILL ACTIVELY HALLUCINATING AND TALKING TO HIMSELF.
--- NOTE | 2020-04-11 15:52 | NUR ---
Sink Cutter followed up with Deyanira at [facility] who states they will review referral but feel patient may be a better fit for SNF with the possible need for care home care. SOLEDAD contacted Gabbie at [facility] and faxed updates. SOLEDAD spoke with Gabbie and advised that patient may need intermodal owner operator truck driver care. SOLEDAD followed up with patient's , Jaimee who reports she is already working on a Medicaid application with a high school social studies tutor at the [place]. Jaimee states she has a meeting with an traffic law attorney to discuss her assests/resources and complete the Medicaid application. Jaimee is still in agreement with discharge to [facility]. SOLEDAD collaborated with GLENN Huerta to advise [facility] cannot admit patient over the weekend. Deanna reports patient may be ready to discharge tomorrow. SOLEDAD will continue to follow.
--- NOTE | 2020-04-11 17:05 | NUR ---
PT STILL HALLUCINATING AND BEING INNAPROPRIATE WITH STAFF. PT BOOSTED IN BED, MEDICATIONS GIVEN, WATER IS AT BEDSIDE, NO OTHER NEEDS AT THIS TIME. DENIES PAIN WHEN IS IS LAYING IN BED.
--- NOTE | 2020-04-11 20:29 | NUR ---
IN TO ASSESS PATIENT, PATIENT IS DISORIENTATED AND CONFUSED. WHEN ASKING THE PATIENT WHERE HE WAS, HE POINTED HIS FINGERS IN DIFFERENT DIRECTIONS. PATIENT WAS PROVIDED INCONTINENT CARE. PATIENT WAS REPOSITIONED IN HIS BED
[2020-04-12 00:10] VITALS: BP 144/71; PULSE 78; TEMP 99
--- NOTE | 2020-04-12 03:29 | NUR ---
PATIENT IN BED AND TALKING TO HIMSELF LIKE SOMEONE IS IN THE ROOM. TALKS ABOUT HIS CAT LICKING HIS TOES AND THAT HE IS GOING TO GET BEER.
[2020-04-12 04:00] VITALS: BP 166/49; PULSE 80; TEMP 98.3
--- NOTE | 2020-04-12 05:13 | NUR ---
PATIENT WAS COVERED IN HIS OWN FECES. PATIENT HAD PUT BOTH HANDS IN HIS FECES. TOTAL BED CHANGED WAS PERFORMED WELL INCONTINENT CARE. PATIENT REPOSITIONED IN BED. NO OTHER NEEDS AT THIS TIME.
--- NOTE | 2020-04-12 05:51 | NUR ---
PATIENT HAS BEEN TALKING AND RAMBLING NONSENSE ALL NIGHT IN HIS ROOM. PATIENT HAS BEEN PROVIDED INCONTINENT CARE SEVERAL TIMES THROUGHOUT THE SHIFT. ONCE THE PATIENT WAS COVERED IN HIS OWN FECES. PATIENT MAKED INAPPROPRIATE COMMENTS TO THE NURSE AND SOFTWARE ENGINEER WEB SERVICES WHEN HE WAS BEING CLEANED UP. PATIENT IS VERY CONFUSED AND DISORIENTATED. PATIENT HAS TALKED ABOUT HIS CAT BEING IN HIS ROOM AND GOING TO GET BEER AND THEN IT WAS TIME FOR HIM TO HEAD HOME. PATIENT HAS NOT SLEPT AT ALL THROUGH THE SHIFT. WILL CONTINUE TO MONITOR. WILL REPORT OFF TO DAY SHIFT UPON THEIR ARRIVAL.
[2020-04-12 06:24] LABS: BASO % 0.3 % (0.0-2.0); EOS # 0.3 (0.0-0.7); EOS % 2.3 % (0-4.0); GRAN # 8.5 (1.4-6.5); GRAN % 77.1 % (42.2-75.2); HEMOGLOBIN 10.3 g/dl (13.5-18.0); LYMPH # 1.3 (1.2-3.4); LYMPH % 11.6 % (20.0-51.0); MEAN CELL VOLUME 93 fl (80.0-100.0); MEAN CORPUSCULAR HEMOGLOBIN 28 pg (27.0-31.0); MEAN CORPUSCULAR HGB CONC 30 g/dl (33.0-37.0); MONO # 0.9 (0.1-0.6); MONO % 8.3 % (1.7-9.3); PLATELET COUNT 247 K/mm3 (130-400); RED BLOOD COUNT 3.65 M/mm3 (4.20-5.60); REDCELL DISTRIBUTION WIDTH-CV 14.3 % (11.5-14.5)
[2020-04-12 06:30] LABS: HEMATOCRIT 33.9 % (42.0-52.0)
[2020-04-12 06:33] LABS: CALCIUM 9.3 mg/dL (8.4-10.2); CREATININE, serum 1.97 (0.66-1.25); POTASSIUM 4.6 mmol/L (3.4-5.0)
[2020-04-12 08:50] VITALS: BP 165/80; PULSE 97; TEMP 98.2
--- NOTE | 2020-04-12 09:20 | NUR ---
Pt awake and alert upon entry, not fully oriented, shift assessments complete, left Pt call light in reach, bed in lowest position, alarm on.
[2020-04-12] MEDS ORDERED: DOXYCYCLINE 10100 MG PO (10:35)
[2020-04-12] MEDS ORDERED: BUMEX 1MG TA1 MG/TA1 PO (10:35)
[2020-04-12] MEDS ORDERED: IPRATROPIUM BROM3 M1 IH (10:36)
[2020-04-12] MEDS ORDERED: ASPIRIN E.C. 8181 MG PO (10:36)
[2020-04-12] MEDS ORDERED: NORCO 325 MG-51 TAB PO (10:38)
--- NOTE | 2020-04-12 11:41 | NUR ---
User Experience Researcher attended clinical rounds with the team and patient to discharge to [facility] today. Patient is oriented to self but is unsure where he is at. Patient does state that the year is 2020 and knows the current president. SOLEDAD contacted Gabbie at [facility] to set transport time for 1200. SOLEDAD contacted patient's Jaimee to notify her of discharge and to review IM form. SOLEDAD read IM form aloud to Jaimee who verbalized understanding and provided verbal consent as signature. SOLEDAD placed form in patient's chart. SOLEDAD faxed discharge orders to Gabbie at [facility]. SOLEDAD also contacted Heather at [facility] to thank her for reviewing referral. SOLEDAD was then contacted by [facility] and was advised they did not bring a wheelchair for transport. SOLEDAD collaborated with CELINA Chiu who advised it was fine for [facility] to use a wheelchair from the hospital as long as they bring it back. SOLEDAD spoke with Fifi from [facility] who advised they would bring back chair, likely today. No additional needs at this time.
--- NOTE | 2020-04-12 12:30 | NUR ---
Pt transferred to [facility], escorted Pt to [facility], home staff loaded Pt into bus via WC ,and transferred to bus seat, Pt left with staff. Called report to receiving nurse, questions answered.
[2020-04-12 12:31] VITALS: BP 165/80; PULSE 97; TEMP 98.2
== END 2020-04-12 12:30 | DRG 291 ==
LOC: COL.ER 17:05 → MEDICAL 18:37
PROVIDERS: Emergency Medicine; Nurse Practitioner Family; ADMIT Internal Medicine
DX: I13.0 Hypertensive heart and chronic kidney disease with heart failure and stage 1 through stage 4 chronic kidney disease, or unspecified chronic kidney disease (principal); I50.33 Acute on chronic diastolic (congestive) heart failure; J96.01 Acute respiratory failure with hypoxia; N17.9 Acute kidney failure, unspecified; E78.5 Hyperlipidemia, unspecified; E11.40 Type 2 diabetes mellitus with diabetic neuropathy, unspecified; E66.01 Morbid (severe) obesity due to excess calories; G20 Parkinson's disease; F02.80 Dementia in other diseases classified elsewhere, unspecified severity, without behavioral disturbance, psychotic disturbance, mood disturbance, and anxiety; N40.0 Benign prostatic hyperplasia without lower urinary tract symptoms; I25.10 Atherosclerotic heart disease of native coronary artery without angina pectoris; D63.1 Anemia in chronic kidney disease; N18.3 Chronic kidney disease, stage 3 (moderate); M19.90 Unspecified osteoarthritis, unspecified site; E87.5 Hyperkalemia; Z79.4 Long term (current) use of insulin; Z87.891 Personal history of nicotine dependence; Z88.0 Allergy status to penicillin; Z86.73 Personal history of transient ischemic attack (TIA), and cerebral infarction without residual deficits; Z68.30 Body mass index [BMI] 30.0-30.9, adult
CPT/HCPCS: 99223-AI; 99232-AI; 99233-AI; 99239; A9500; J1644; J1815; J2785